=== PATIENT | female | born 2000 | race Caucasian/White ===

== ENCOUNTER 2022-01-20 23:47 | Observation (INO) | payer OTHER ==
[~2022-01-20] VITALS: Ht 160 cm; Wt 53.4 kg
--- NOTE | ~2022-01-20 | HP ---
[facility] [address], [place] [address] Draft ADMISSION DATE: 01/20/2022 REASON FOR ADMISSION: Acute appendicitis. HISTORY OF PRESENT ILLNESS: This 21-year-old white woman yesterday afternoon began having vague lower abdominal pain. She thought she was likely to have her period. The symptoms worsened until later in the day where they became much worse and essentially intolerable. She presented to the emergency room at approximately 11:00 p.m. and was evaluated by Dr. Apple, found to have right lower abdominal tenderness and an elevated white count to 14.6. A CT scan of the abdomen was performed, which showed unremarkable adnexa and uterus, but acute appendicitis without evidence of perforation. There is a small amount of peritoneal fluid noted as well. The appendix was dilated and fluid-filled and 0.9 cm in diameter. She was admitted for further evaluation and care to include antibiotic administration (cefoxitin). She has improved in her symptoms quite markedly since her presentation. She still has right lower abdominal pain, but not as severe. 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 She has not had abdominal surgery in the past. MEDICATIONS: She has no medications outpatient other than albuterol inhaler as needed, though she has not required it recent times. LABORATORY STUDIES: Show normal electrolytes, potassium slightly low at 3.4. Liver enzymes are normal. Beta-hCG is negative. Her CBC shows white count of 14.6 with hematocrit of 43.3 and platelets of 295,000. Urinalysis is normal. REVIEW OF SYSTEMS: She denies any shortness of breath or chest pain. She has had no wheezing lately. Denies dysuria or hematuria. She has had no pelvic pain previously. PHYSICAL EXAMINATION: GENERAL: A thin white woman, who looks to be in no distress. VITAL SIGNS: Temperature is 98.7, pulse 96, and blood pressure 126/74. PATIENT NAME: OSEAS SEAMAN HISTORY AND PHYSICAL DATE OF : [birth year] REPORT #: [id number] PHYSICIAN: ANGLE SONG MD PCP: NO PRIMARY CARE PHYSICIAN REPORT IS CONFIDENTIAL AND NOT TO BE RELEASED WITHOUT AUTHORIZATION [facility] [address], [place] [address] Draft Neck: Shows no thyromegaly or cervical adenopathy. Trachea is midline. Mucous membranes are moist. CHEST: Clear. HEART: Regular, without murmur. ABDOMEN: Flat and nondistended. Rovsing sign is equivocal. There is tenderness in McBurney's point. EXTREMITIES: Show no clubbing, cyanosis, or edema. Sequential compression device stockings are in place. LABORATORY DATA: Lab studies showed white count of 14.6 and hematocrit 43.3. Other labs as previously noted as normal. IMAGING DATA: Review of her CT scan report was accomplished and I will be reviewing her CT images myself when they were available in PACS. ASSESSMENT: The patient has clinical findings consistent with appendicitis and CT evidence of the same. I discussed with the patient and her mother and sister and boyfriend, who attend to her pathophysiology of appendicitis and recommendation of treatment to include appendectomy, preferably by laparoscopic approach. Discussed nonoperative methods as well, which they would not favor in her circumstance. The risks of bleeding, infection, need for open procedure, need for other indicated procedures for occult pathology and so forth were all reviewed. She understands and wished to proceed. PLAN: We will plan for operation in the next hour or so. Preoperative antibiotic Ancef will be given again. MD JOHN Valenzuela/ZAYNABL /[id number] cc: Jackie Apple MD PATIENT NAME: OSEAS SEAMAN HISTORY AND PHYSICAL DATE OF : [birth year] REPORT #: [id number] PHYSICIAN: ANGLE SONG MD PCP: NO PRIMARY CARE PHYSICIAN REPORT IS CONFIDENTIAL AND NOT TO BE RELEASED WITHOUT AUTHORIZATION [facility] [address] [place] [id number] Draft Copies: JACKIE APPLE MD ~ PATIENT NAME: OSEAS SEAMAN HISTORY AND PHYSICAL DATE OF : [birth year] REPORT #: [id number] PHYSICIAN: ANGLE SONG MD PCP: NO PRIMARY CARE PHYSICIAN REPORT IS CONFIDENTIAL AND NOT TO BE RELEASED WITHOUT AUTHORIZATION
--- NOTE | ~2022-01-20 | OR ---
[facility] [address], [place] [address] Draft DATE OF OPERATION: 01/20/2022 SURGEON: Angle Song MD PREOPERATIVE DIAGNOSIS: Acute appendicitis. POSTOPERATIVE DIAGNOSIS: Acute appendicitis. PROCEDURE: Laparoscopic appendectomy. ANESTHESIA: General endotracheal, Jaxson Chandra CRNA and local 20 mL of 0.25% Marcaine with epinephrine. INDICATIONS: This 21-year-old white girl began having lower abdominal pain localizing to the right lower quadrant, presented to the was evaluated last night by Dr. Mattie Apple in [facility]. Tenderness was noted at McBurney's point, white count was elevated to 14.6. Beta-hCG was negative. Urinalysis normal. A CT scan was performed confirming acute appendicitis. She has been fluid resuscitated given intravenous antibiotic, cefoxitin; now to undergo appendectomy via laparoscopic approach. The risks of bleeding, infection, need for other indicated procedures, failure to cure her symptoms, and so forth were all reviewed. She understands and wished to proceed. FINDINGS: Indeed, she did have acute appendicitis. Complete appendectomy was performed without problem. The right adnexa and the right ovary were normal as was the uterus. The gallbladder was normal as was the liver. There was no evidence of other abnormality. DESCRIPTION OF PROCEDURE: The patient was brought to the operating room, given a general endotracheal anesthetic. Preoperative antibiotic cefoxitin had been given. Sequential compression device stockings were used. The abdomen was prepared with a chlorhexidine solution after satisfactory general endotracheal anesthesia. An infraumbilical incision was made and using an open Kevin cannula technique. Pneumoperitoneum was achieved to a level of 14 mmHg of carbon dioxide gas. Intra-abdominal inspection showed no sign of ascites or carcinomatosis. The liver appeared normal as did the gallbladder. The appendix was PATIENT NAME: OSEAS SEAMAN OPERATIVE REPORT DATE OF : 02 REPORT #: [id number] PHYSICIAN: ANGLE SONG MD PCP: NO PRIMARY CARE PHYSICIAN REPORT IS CONFIDENTIAL AND NOT TO BE RELEASED WITHOUT AUTHORIZATION [facility] [address] [place], [place] [address] Draft obscured from view initially. An epigastric 12 mm port was placed and laparoscope replaced to that site. Using single hand manipulation, the very mobile cecum was manipulated showing a retrocecal position of the appendix, it was easily mobilized. The right lower quadrant 5 mm port was placed. Using two hand manipulation, the appendix was elevated away and a window created between the appendix and mesoappendix with electrocautery and blunt dissection. The EndoGIA stapling device was used to transect the base of the appendix. The somewhat wide mesentery was dissected with electrocautery, ultimately allowing for placement of an Endo GERARDO stapling device across that. Transection showed no sign of significant bleeding. The appendix was placed in an Endobag and extracted through the infraumbilical port site without problem. Palpation through the bag showed no sign of fecalith. Irrigation was undertaken in the region of the transection of the staple line and so forth, showing no sign of bleeding or other problems. Manipulation of the camera allowed for visualization of the pelvic organs. The uterus, tube, and ovary were all normal. The terminal ileum was normal as well. The scope was replaced to the umbilical site and the right lower quadrant and epigastric trocars removed under direct visualization showing no sign of bleeding. The Kevin cannula was removed and the infraumbilical fascial incision reapproximated with interrupted 0-Vicryl suture. A 20 mL of 0.25% Marcaine with epinephrine injected locally. The skin was closed with interrupted 3-0 Vicryl and Steri-Strips were applied. The patient was ultimately extubated and transferred to the recovery room in good condition, having suffered no complications. Sponge, needle, and instrument counts were reported as correct x3. Angle Song MD JM/MODL /[id number] cc: Jackie Apple MD Copies: JACKIE APPLE MD ~ PATIENT NAME: OSEAS SEAMAN OPERATIVE REPORT DATE OF : 02 REPORT #: [id number] PHYSICIAN: ANGLE SONG MD PCP: NO PRIMARY CARE PHYSICIAN REPORT IS CONFIDENTIAL AND NOT TO BE RELEASED WITHOUT AUTHORIZATION
[2022-01-21] MEDS ORDERED: VENTOLIN HFA18 GM INH (00:08)
--- NOTE | 2022-01-21 03:17 | NUR ---
pt ARRIVED TO FLOOR. AMBULATED TO BED FROM ED STRETCHER. PAIN 6/10 PRN GIVEN , FLUIDS INFUSING PER ORDERS (SEE MAR). SKIN INTACT, LUNGS CLEAR. BOWEL TONES ACTIVE. SCDS ON. ALL QUESTIONS ANSWERED. CALL LIGHT WITHIN REACH.
--- NOTE | 2022-01-21 03:56 | NUR ---
pt UP TO VOID, LEGS HEAVY FROM DILAUDID, PIVOT TO BSC. LARGE VOID DILUTE URINE. BACK TO BED. pt RATED PAIN 8/10 AFTER AMBULATION STATED "IT'S COMING DOWN WILL REASSESS IN 5 MINUTES. BOYFRIEND AT BEDSIDE. CALL LIGHT WITHIN REACH.
--- NOTE | 2022-01-21 04:06 | NUR ---
ROUNDED ON pt, PAIN HAS DECREASED. pt IN TEARS, ANXIOUS ABOUT HAVING SURGERY. THERAPEUTIC COMMUNICATION. BOYFRIEND AT BEDSIDE. NO FURTHER REQUESTS AT THIS TIME. CALL LIGHT WITHIN REACH.
--- NOTE | 2022-01-21 05:18 | NUR ---
PT ROUNDING. PT RESTING IN BED AWAKE. REPORTS PAIN 5/10, REQUESTS PRN PAIN MEDICATION. ADMINISTERED. SEE EMAR. PT DENIES FURTHER NEEDS AT THIS TIME. CALL LIGHT IN REACH.
--- NOTE | 2022-01-21 06:09 | NUR ---
ROUNDED ON pt. WOKE TO VOICE. PAIN 11/24. EXPLAINED WIPE DOWN PROCEDURE. VITALS DONE. NO REQUESTS AT THIS TIME. CALL LIGHT WITHIN REACH.
--- NOTE | 2022-01-21 07:28 | NUR ---
REPORT RECEIVED FROM NIGHT RN AND PT. CARE RESUMED. PT IS UP TO THE BATHROOM WITH EDUCATIONAL ADVISOR COMPLETING SURG. WIPE-DOWN. AFTER WIPE DOWN, PT C/O MILD ITCHING ON LEGS AND CHEST. NO REDNESS NOTED. WILL CONTINUE TO MONITOR. PT. EDUCATED AND QUESTIONS ANSWERED. LEFT RESTING WITH CALL LIGHT IN REACH AND BOYFRIEND AT BEDSIDE.
--- NOTE | 2022-01-21 09:45 | NUR ---
PT. C/O RIGHT SIDE ABDOMINAL PAIN. ADMIN. 0.2MG DILAUDID. DOSE LOW THAN ORDERED, SHE STATES THE 0.4MG DOSE LAST ADMIN. WAS "TOO STRONG". PT. IS ALERT AND ORIENTED TO ALL. DENIES NAUSEA. IV SITE WNL. SCDs IN PLACE. PT. EDUCATION PROVIDED ON POST-OP CARE AND QUESTIONS ANSWERED. PT. LEFT RESTING WITH FAMILY AT BEDSIDE.
--- NOTE | 2022-01-21 10:44 | NUR ---
OR NURSE HERE TO TAKE PT. ATIVAN ADMIN. FOR ANXIETY. CEFOXITIN GIVEN TO RN.
--- NOTE | 2022-01-21 11:48 | NUR ---
01/21/22 1148 CHUN BOONE 1142-PATIENT ARRIVES TO PACU ON 6L VIA MASK. PATIENT IN NONAROUSABLE AND HAS ORAL AIRWAY IN PLACE. RESP EVEN AND UNLABORED.
[2022-01-21] MEDS ORDERED: TYLENOL EXTRA500 M2 PO (11:54)
[2022-01-21] MEDS ORDERED: PERCOCET 7.5-31 EACH PO (11:54)
[2022-01-21] MEDS ORDERED: MOTRIN IB200 MG PO (11:55)
--- NOTE | 2022-01-21 13:05 | NUR ---
PT. RETURNED FROM PACU AND TRANSFERRED TO BED BY 2 STAFF. PT. DENIES PAIN OR NAUSEA AND STATES SHE IS TIRED. TOLERATING SIPS OF WATER. VITALS STABLE. LAP. SITE DRESSINGS HAVE A DRIED SEROSANGUINOUS DRAINAGE BUT ARE INTACT. ABDOMEN SOFT AND NON-DISTENDED. BOWEL TONES RARE. DISCUSSED SAFETY, PAIN MANAGEMENT AND DC CRITERIA. PT. LEFT RESTING WITH FAMILY AT BEDSIDE.
--- NOTE | 2022-01-21 13:15 | NUR ---
PT. REPORTS MILD ABDOMINAL PAIN AND STATES SHE IS NOT PASSING FLATUS. DENIES NAUSEA. LAP SITE DRESSINGS X3 REMAIN UNCHANGED. ABDOMEN SOFT AND BOWEL TONES HYPOACTIVE THROUGHOUT. PT. BROUGHT PUDDING AND DISCUSSED AMBULATING AND GOING TO THE BATHROOM IN THE NEXT HOUR. PT. FAMILY AT BEDSIDE.
--- NOTE | 2022-01-21 13:15 | NUR ---
PT. C/O PAIN. ADMIN. DILAUDID. IV DRESSING REINFORCED WITH TAPE. PT. LEFT RESTING WITH CALL LIGHT IN REACH.
--- NOTE | 2022-01-21 14:26 | NUR ---
PT. C/O SHOULDER PAIN. ENCOURAGED TO AMBULATE. PT. AMBULATED AROUND THE ROOM AND TO THE BATHROOM. VOIDED 250ML. ADMIN. PERCOCET. PER PT., SHE IS UNABLE TO SWALLOW PILLS. PAIN MED CRUSHED IN APPLE SAUCE. LAP. SITE DRESSINGS REMAIN UNCHANGED. DISCUSSED AMBULATING IN THE NEXT HOUR. LEFT RESTING WITH CALL LIGHT IN REACH.
--- NOTE | 2022-01-21 15:15 | NUR ---
PT. IS RESTING WITH EYES CLOSED. SHE IS EATING WELL WITHOUT NAUSEA. PT. TOLD SHE NEEDS TO AMBULATE IN ORDER TO DC. MADE A PLAN TO AMBULATE IN 30 MINUTES. FAMILY AT BEDSIDE.
--- NOTE | 2022-01-21 16:41 | NUR ---
PT. HAS MET ALL CRITERIA FOR DISCHARGE. SHE HAS WALKED 2 LAPS AROUND THE UNIT AND TOLERATED WELL. EATING, VOIDING, DRINKING WELL. LAP SITE STERI STRIP HAS A SMALL AMOUNT OF DRIED DRAINAGE AND ARE INTACT. VITALS STABLE. PT. AGREED TO HAVE DINNER AND THEN POSSIBLY DISCHARGE.
--- NOTE | 2022-01-21 19:36 | NUR ---
IV IN LEFT AC DC'D WNL. TIP INTACT. PT GIVEN WHEELCHAIR RIDE TO FRONT OF HOSPITAL TO LEAVE IN PERSONAL VEHICLE. ALL BELONGINS LEFT WITH PT.
== END 2022-01-21 19:35 | disposition home or self-care (01) ==
LOC: ED 23:47 → MS 23:49
PROVIDERS: ADMIT Surgery; ATTEND Surgery
PROC: 0DTJ4ZZ Resection of Appendix, Percutaneous Endoscopic Approach (ICD-10-PCS; principal; 2022-01-20)
DX: K35.80 Unspecified acute appendicitis (principal); J45.909 Unspecified asthma, uncomplicated; Z91.013 Allergy to seafood; Z20.822 Contact with and (suspected) exposure to COVID-19
CPT/HCPCS: 36415; 74177; 80053; 81001; 83690; 84703; 85025; 96375; 96376; 99285-25; C9803; G0378; J0131; J0330; J0694; J1100; J1170; J1885; J2001; J2060; J2405; J2704; J3010; J3480; J7030; J7121; Q9967; U0003

== ENCOUNTER 2024-12-31 16:26 | Emergency (ER) | payer BC, OTHER ==
[~2024-12-31] VITALS: Ht 160 cm; Wt 50.6 kg
[~2024-12-31 16:26] MED LIST: MOTRIN IB200 MG PO; PERCOCET 7.5-31 EACH PO; TYLENOL EXTRA500 M2 PO; VENTOLIN HFA18 GM INH
[2024-12-31 16:56] LABS: BASOPHILS 0.6 % (0-2); HEMATOCRIT 42.1 % (35.0-50.0); HEMOGLOBIN 14.9 g/dL (12.0-18.0); LYMPHOCYTES 49.4 % (24-44); MCH 29.3 (27-36); MCHC 35.4 g/dl (30-36); MCV 82.6 fl (81-99); PLATELET COUNT 284 K/uL (140-440); RBC 5.09 M/ul (4.3-5.7); RDW 13.1 (10.5-15.0)
[2024-12-31 17:11] LABS: ALBUMIN/GLOBULIN RATIO 1.11 (1.1-2.4); ANION GAP 13.3 (7-21); BILIRUBIN, TOTAL 0.3 mg/dL (0.2-1.0); BUN/CREATININE RATIO 11.25 (6.0-28.6); CALCIUM 8.6 mg/dL (8.5-10.1); CREATININE, SERUM 0.8 mg/dL (0.55-1.02); POTASSIUM 3.3 mmol/L (3.5-5.1); PROTEIN, TOTAL 7.6 g/dL (6.4-8.2)
[2024-12-31 17:37] LABS: BILIRUBIN, URINE NEGATIVE (negative); BLOOD/HGB, URINE NEGATIVE (Negative); KETONE, URINE NEGATIVE (Negative); LEUK ESTERASE, URINE NEGATIVE (negative); NITRITE, URINE NEGATIVE (negative)
[2024-12-31 17:50] LABS: BACTERIA, URINE 1+ /hpf (negative); CASTS, URINE NONE SEEN \\lpf; COLLECTION TYPE, URINE CLEAN CATCH; CRYSTALS, URINE NONE SEEN (0-1+); EPITHELIAL CELLS, URINE SQUAMOUS 1+ /lpf (0-1+); RED BLOOD CELLS, URINE 0-1 /hpf (0-5); REFLEX CULTURE, URINE No (No); WHITE BLOOD CELLS, URINE 0-1 /HPF (0-5)
[2024-12-31 19:42] LABS: GLUCOSE, CSF 61 mg/dL (40-70)
[2024-12-31 19:57] LABS: PROTEIN, CSF 22 mg/dL (15-45)
[2024-12-31 20:39] LABS: CLARITY, CEREBROSPINAL FLUID SLIGHTLY CLOUDY; MONONUCLEAR CELLS, CSF 38; PMNS, CEREBROSPINAL FLUID 62; RBC, CEREBROSPINAL FLUID 11683; WBC, CEREBROSPINAL FLUID 33
[2024-12-31 20:40] LABS: CLARITY, CEREBROSPINAL FLUID CLEAR; COLOR, CEREBROSPINAL FLUID COLORLESS; MONONUCLEAR CELLS, CSF 38; PMNS, CEREBROSPINAL FLUID 62; RBC, CEREBROSPINAL FLUID 957; WBC, CEREBROSPINAL FLUID 15
[2024-12-31] MEDS ORDERED: LACTATED RINGER'S 1,000 ML IV SCH (21:00)
[2024-12-31 21:25] LABS: CORONAVIRUS COVID-19 AG NEGATIVE (NEGATIVE); INFLUENZA A AG NEGATIVE (NEGATIVE); INFLUENZA B AG NEGATIVE (NEGATIVE)
[2024-12-31] MEDS ORDERED: IMMUN GLOB IV ONE (23:45)
[2024-12-31] MEDS ORDERED: IGA IV ONE (23:45)
[2024-12-31] MEDS ORDERED: PRO IV ONE (23:45)
[2025-01-01] MEDS ORDERED: IGA IV ONE (00:30)
[2025-01-01] MEDS ORDERED: IMMUN GLOB IV ONE (00:30)
[2025-01-01] MEDS ORDERED: PRO IV ONE (00:30)
[2025-01-01] MEDS ORDERED: ACETAMINOPHEN 160 MG/5 ML CUP PO ONE (00:45)
[2025-01-01] MEDS ORDERED: ondansetron HCL 4 MG/2 ML VIAL IV ONE (03:30)
[2025-01-01] MEDS ORDERED: FAMOTIDINE 20 MG/ 2 ML VIAL IV ONE (03:30)
[2025-01-01 04:48] VITALS: BP 106/70
== END 2025-01-01 04:48 | disposition short-term general hospital (02) ==
LOC: ED 16:26
PROVIDERS: Emergency Medicine; Internal Medicine
DX: G62.9 Polyneuropathy, unspecified (principal); J45.909 Unspecified asthma, uncomplicated; Z91.013 Allergy to seafood
CPT/HCPCS: 36415; 62270; 70553; 72158; 80053; 81001; 82945; 84157; 85025; 87070; 87075; 87205; 89051; 99285-25; A9270; A9577; A9579; J1459; J2405; J7121; U0002